=== PATIENT | female | born 1985 | race American Indian/Alaskan Native ===

== ENCOUNTER 2019-07-19 14:14 | Emergency (ER) | payer MEDICAID ==
[2019-07-19 16:45] VITALS: BP 136/66
[2019-07-19 18:49] LABS: Bilirubin,Urine NEG (Negative); Blood,Urine NEG (Negative); Color,Urine Yellow (Yellow); Mucus,Urine 3+ /HPF; Protein,Urine <15 mg/dL mg/dL (Negative); Urobilinogen,Urine < 2.0 mg/dL (<2.0)
[2019-07-19 18:52] LABS: HCG Qualitative,Urine Negative (Negative)
--- NOTE | 2019-07-19 19:57 | XRay Report ---
LEFT RIB SERIES 3 VIEWS INDICATION: PERSISTANT COUGH WITH RIB PAIN/SOB UPT. COMPARISON: No relevant prior imaging study available. FINDINGS: No acute pulmonary or pleural findings. No displaced left-sided rib fractures are identified. IMPRESSION: 1. No acute findings. Signer Name: William Machado MD Signed: 07/19/2019 7:52 PM Workstation Name: [id number]
--- NOTE | 2019-07-19 21:47 | Emergency Department Report ---
ED General Adult HPI - General Chief complaint: Upper Respiratory Infection Stated complaint: FLU SX Time Seen by Provider: 07/19/19 21:29 Source: patient Mode of arrival: Ambulatory Limitations: No Limitations - History of Present Illness Initial comments: 34-year-old female presents to the emergency room for cough and left flank pain. Patient states that she she has sharp pain to her left rib cage worse with coughing. Patient has not taken anything for her cough. Patient does admit that she was sleeping on the floor in her mother's spare bedroom and not sure that can been the culprit. Patient denies any fevers chills no nausea no vomiting. Patient does admit that she has allergies but has not taken anything for pain. Onset/Timin -: days(s) Location: chest (Left lateral chest) Severity scale (0 -10): 8 Quality: burning, sharp Consistency: intermittent Worsens with: other (Coughing) Associated Symptoms: cough. denies: diaphoresis, fever/chills, loss of appetite, nausea/vomiting, shortness of breath, weakness - Related Data Previous Rx's Medication Instructions Recorded Last Taken Type Promethazine /Codeine 5 ml PO Q6H PRN #110 ml 07/19/19 Unknown Rx [Phenergan/Codeine 6.25-10 mg/5Ml] Allergies Allergy/AdvReac Type Severity Reaction Status Date / Time No Known Allergies Allergy Unverified 07/19/19 14:22 ED Review of Systems ROS: Stated complaint: FLU SX Other details as noted in HPI Comment: All other systems reviewed and negative ED Past Medical Hx - Past Medical History Previous Medical History?: No - Surgical History Past Surgical History?: No - Social History Smoking Status: Never Smoker Substance Use Type: None - Medications Home Medications: Home Medications Medication Instructions Recorded Confirmed Last Taken Type Promethazine /Codeine 5 ml PO Q6H PRN #110 ml 07/19/19 Unknown Rx [Phenergan/Codeine 6.25-10 mg/5Ml] ED Physical Exam - General Limitations: No Limitations General appearance: alert, in no apparent distress - Head Head exam: Present: atraumatic, normocephalic - Eye Eye exam: Present: normal appearance - ENT ENT exam: Present: mucous membranes moist - Respiratory Respiratory exam: Present: normal lung sounds bilaterally, chest wall tenderness (Left lateral ribs). Absent: respiratory distress - Cardiovascular Cardiovascular Exam: Present: regular rate, normal rhythm. Absent: systolic murmur, diastolic murmur, rubs, gallop - GI/Abdominal GI/Abdominal exam: Present: soft, normal bowel sounds - Neurological Exam Neurological exam: Present: alert, oriented X3, normal gait - Psychiatric Psychiatric exam: Present: normal affect, normal mood - Skin Skin exam: Present: warm, dry, intact, normal color. Absent: rash ED Course Vital Signs 07/19/19 16:42 Temperature 98.5 F Pulse Rate 86 Respiratory 22 Rate Blood Pressure 136/66 O2 Sat by Pulse 99 Oximetry ED Medical Decision Making - Lab Data Laboratory Tests 07/19/19 Unknown Urine Color Yellow Urine Turbidity Cloudy Urine pH 5.0 Ur Specific [place] 1.019 Urine Protein <15 mg/dl Urine Glucose (UA) Neg Urine Ketones Tr Urine Blood Neg Urine Nitrite Neg Urine Bilirubin Neg Urine Urobilinogen < 2.0 Ur Leukocyte Esterase Mod Urine WBC (Auto) 8.0 H Urine RBC (Auto) 7.0 U Epithel Cells (Auto) 31.0 H Urine Mucus 3+ Urine HCG, Qual Negative - Radiology Data Radiology results: report reviewed Patient: HAROON MIXON MR#: [id number] : 1985 Acct:[id number] Age/Sex: 34 / F ADM Date: 07/19/19 Loc: ED Attending Dr: Ordering Physician: CRYSTAL LAFLEUR NP Date of Service: 07/19/19 Procedure(s): XR ribs UNI w PA chest 3+V LT Accession Number(s): [id number] cc: CRYSTAL LAFLEUR NP Fluoro Time In Minutes: LEFT RIB SERIES 3 VIEWS INDICATION: PERSISTANT COUGH WITH RIB PAIN/SOB UPT. COMPARISON: No relevant prior imaging study available. FINDINGS: No acute pulmonary or pleural findings. No displaced left-sided rib fractures are identified. IMPRESSION: 1. No acute findings. Signer Name: William Machado MD Signed: 07/19/2019 7:52 PM Workstation Name: [id number] Transcribed By: Dictated By: William Machado MD Electronically Authenticated By: William Machado MD Signed Date/Time: 07/19/191951 DD/ 51 TD/TT: - Medical Decision Making 34-year-old female presents to the emergency room for cough and left flank pain. Patient states that she she has sharp pain to her left rib cage worse with coughing. Patient has not taken anything for her cough. Patient does admit that she was sleeping on the floor in her mother's spare bedroom and not sure that can been the culprit. Patient denies any fevers chills no nausea no vomiting. Patient does admit that she has allergies but has not taken anything for pain. Critical care attestation.: If time is entered above; I have spent that time in minutes in the direct care of this critically ill patient, excluding procedure time. ED Disposition Clinical Impression: Cough Disposition: DC-01 TO HOME OR SELFCARE Is pt being admited?: No Does the pt Need Aspirin: No Condition: Stable Instructions: Narcotic-Antitussive/Expectorant (By mouth) Prescriptions: Promethazine /Codeine [Phenergan/Codeine 6.25-10 mg/5Ml] 5 ml PO Q6H PRN #110 ml PRN Reason: cough Referrals: TATUM MARTÍNEZ MD [Staff Physician] - 3-5 Days Forms: Work/School Release Form(ED)
[2019-07-19] MEDS ORDERED: KETOROLAC 30 MG/1 ML INJ IM ONE (22:10)
== END 2019-07-19 22:54 | disposition home or self-care (01) ==
LOC: ED 14:14
DX: R05 Cough (principal)
CPT/HCPCS: 71101; 81001; 81025; 96372; 99284; J1885